=== PATIENT | male | born 1960 | race African-American/Black ===

== ENCOUNTER 2017-07-26 08:11 | Emergency (ER) | payer OTHER ==
[2017-07-26 08:16] VITALS: BMI 27.1
--- NOTE | 2017-07-26 08:37 | PDOC ---
History of Present Illness <Katiana Henning - Last Filed: 07/26/17 11:01> - General History Source: Patient Exam Limitations: No Limitations - History of Present Illness Initial Comments: 07/26/17 11:12 Patient is a 57 year old male with a significant past medical history of HTN, who presents to the ED with complaints of right handed tremor that began 1.5 months ago. Patient reports tremor began 1.5 months ago suddenly while at home. He reports right handed tremors have been intermittent for the last 1.5 months and only occurs when his hand is at rest. He states making an appointment with Dr. Leonard on August 06 for right handed tremor. Patient reports going to see Dr. Oviedo for evaluation of right handed tremor, who referred him to the ED for evaluation and stated he should not wait until August 06. He reports getting Thyroid, liver, kidney, and blood tests done yesterday, results all coming back normal. Denies injuries, trauma. Denies chest pain, SOB. Denies weakness blurred vision. Denies neck pain, headache. Denies leg pains, dysuria. Denies any other symptoms. Allergies Surgical history: Surgery done 19 years ago (calcaneal fracture) Social history: Lives at home. No smoking. No alcohol. No illicit drugs. PMD: Dr. Huerta. Dr. Kathrin Oviedo. 07/26/17 11:18 <Jong Amaya - Last Filed: 07/26/17 11:19> - General Chief Complaint: Tremors Stated Complaint: TREMOR/ RT HAND Time Seen by Provider: 07/26/17 08:36 Past History - Past Medical History Other medical history: DENIES - Suicide/Smoking/Psychosocial Hx Smoking History: Never smoked Hx Alcohol Use: Yes (SOCIAL) Drug/Substance Use Hx: No Substance Use Type: None <Katiana Henning - Last Filed: 07/26/17 11:01> <Jong Amaya - Last Filed: 07/26/17 11:19> - Past Medical History Allergies/Adverse Reactions: Allergies Allergy/AdvReac Type Severity Reaction Status Date / Time No Known Allergies Allergy Verified 07/26/17 08:16 Home Medications: Ambulatory Orders Amlodipine Besylate 5 mg PO DAILY 07/26/17 Losartan-Hctz 100-12.5 mg Tab 1 tab PO DAILY 07/26/17 Review of Systems - Review of Systems Able to Perform ROS?: Yes Comments:: 07/26/17 11:12 GENERAL/CONSTITUTIONAL: No fever or chills. No weakness. HEAD, EYES, EARS, NOSE AND THROAT: No change in vision. No ear pain or discharge. No sore throat. GASTROINTESTINAL: No nausea, vomiting, diarrhea or constipation. GENITOURINARY: No dysuria, frequency, or change in urination. CARDIOVASCULAR: No chest pain or shortness of breath. RESPIRATORY: No cough, wheezing, or hemoptysis. MUSCULOSKELETAL: +Right handed tremor. No joint or muscle swelling or pain. No neck or back pain. SKIN: No rash NEUROLOGIC: No headache, vertigo, loss of consciousness, or change in strength/ sensation. ENDOCRINE: No increased thirst. No abnormal weight change. HEMATOLOGIC/LYMPHATIC: No anemia, easy bleeding, or history of blood clots. ALLERGIC/IMMUNOLOGIC: No hives or skin allergy. All Other Systems: Reviewed and Negative <Jong Amaya - Last Filed: 07/26/17 11:19> *Physical Exam - Vital Signs Last Vital Signs Temp Pulse Resp BP Pulse Ox 98.3 F 88 20 151/94 100 07/26/17 08:13 07/26/17 08:13 07/26/17 08:13 07/26/17 08:13 07/26/17 08:13 <Katiana Henning - Last Filed: 07/26/17 11:01> - Vital Signs Last Vital Signs Temp Pulse Resp BP Pulse Ox 98.3 F 88 20 151/94 100 07/26/17 08:13 07/26/17 08:13 07/26/17 08:13 07/26/17 08:13 07/26/17 08:13 - Physical Exam Comments: 07/26/17 11:12 GENERAL: Awake, alert, and fully oriented, in no acute distress HEAD: No signs of trauma EYES: PERRLA, EOMI, sclera anicteric, conjunctiva clear ENT: Auricles normal inspection, hearing grossly normal, nares patent, oropharynx clear without exudates. Moist mucosa NECK: Normal ROM, supple, no lymphadenopathy, JVD, or masses LUNGS: Breath sounds equal, clear to auscultation bilaterally. No wheezes, and no crackles HEART: Regular rate and rhythm, normal S1 and S2, no murmurs, rubs or gallops ABDOMEN: Soft, nontender, normoactive bowel sounds. No guarding, no rebound. No masses EXTREMITIES: +Non intention tremor. +Resting tremor that resolves with activity. Normal range of motion, no edema. No clubbing or cyanosis. No cords, erythema, or tenderness NEUROLOGICAL: Cranial nerves II through XII grossly intact. Normal speech, normal gait SKIN: Warm, Dry, normal turgor, no rashes or lesions noted. <Jong Amaya - Last Filed: 07/26/17 11:19> Heart Score/ECG Review - ECG Intrepretation Comment:: 07/26/17 10:30 sinus at 74, L axis deviation, q waves inferior leads that are age indeterminate , lvh, no acute st/t wave findings <Katiana Henning - Last Filed: 07/26/17 11:01> ED Treatment Course - LABORATORY CBC & Chemistry Diagram: 07/26/17 10:10 07/26/17 09:57 <Katiana Henning - Last Filed: 07/26/17 11:01> - LABORATORY CBC & Chemistry Diagram: 07/26/17 10:10 07/26/17 09:57 <Jong Amaya - Last Filed: 07/26/17 11:19> Medical Decision Making - Critical Care Time Total Critical Care Time (minutes): 30 Critical Care Statement: The care of this patient involved high complexity decision making to prevent further life threatening deterioration of the patient 's condition and/or to evaluate & treat vital organ system(s) failure or risk of failure. - Medical Decision Making 07/26/17 09:25 a/p: 57yo male with R arm tremor intermittent x 1 month -sent by Dr. Oviedo for head ct -has appt to see dr. leonard on Aug 06 -other than RUE tremor no focal neuro findings -labs performed yesterday including thyroid and electrolytes/renal/liver function were normal per the patient -call placed to Dr. Oviedo 07/26/17 09:46 called by radiology, small L intracerebral hemorrhage will check labs -repeat call placed to Dr. Oviedo, call placed to [facility] Dr. Cook 07/26/17 10:[address] Oviedo who accepts the patient to service multiple calls placed to Dr. Cook, no answer -will try dr. fuller 07/26/17 10:41 multiple calls placed to [facility] without a response from Dr. Cook (disease and insect control boss doc ) pt will need transfer to [facility]. 07/26/17 11:[address] Alonzo from [facility] ([facility]) who accepts pt in transfer to the ED. Case discussed with Dr. Bhagat from the ED at [facility] who accepts pt in transfer. Pt signed the transfer paperwork and consent obtain and on the chart transportation will be here in [address] Oviedo updated on need for transfer and agrees with the paln. <Katiana Henning - Last Filed: 07/26/17 11:01> - Medical Decision Making 07/26/17 10:[address] Oviedo @9:23am. Called back @10:02am. Case discussed. Called Dr. Blaze Cook @9:50am. Dr. Cook father answered phone. Gave number [phone] to get into contact with Dr. Cook. Called Dr. Blaze Cook at [phone] @10:02am. Voice mail left, awaiting callback. Called Dr. Blaze cook at call book cellphone number @10:04am. Voicemail left , awaiting call back. Called Dr. Rodarte @10:06am. Awaiting call back Called Dr. Oviedo @10:46am. Awaiting call back. Called Dr. Oviedo @10:58am. Case discussed. <Jong Amaya - Last Filed: 07/26/17 11:19> *DC/Admit/Observation/Transfer - Discharge Dispostion Admit: No - Transfer to Acute Care Facility Receiving Facility: [facility] Accepting Physician:: Dr. Bhagat Transfer comment: 07/26/17 11:04 Pt will be seen and evaluated by Dr. Alonzo (neurosurgery) - Attestations Physician Attestion: 07/26/17 10:07 I, Dr. Katiana Henning, DO, attest that this document has been prepared under my direction and personally reviewed by me in its entirety. I further attest, that it accurately reflects all work, treatment, procedures and medical decision -making performed by ct. <Katiana Henning - Last Filed: 07/26/17 11:01> - Attestations Scribe Attestion: 07/26/17 10:24 Documentation prepared by Jong Amaya, acting as medical assembler for Katiana Henning DO, MD/. <Jong Amaya - Last Filed: 07/26/17 11:19> Diagnosis at time of Disposition: Intracerebral hemorrhage - Discharge Dispostion Disposition: TRANSFER ACUTE CARE/OTHER HOSP Condition at time of disposition: Guarded - Referrals Referrals: Jose Carlos Huerta MD [Primary Care Provider] -
[2017-07-26 10:37] LABS: BASOPHIL 0.9 % (0-2.0); MCH 31.3 pg (25.7-33.7); MCHC 34.5 g/dl (32.0-35.9); MEAN CELL VOLUME 90.8 fl (80-96); MEAN PLT VOLUME 7.7 fl (7.5-11.1); NEUTROPHILS 58.4 % (42.8-82.8); PLATELET COUNT 306 K/MM3 (134-434); RDW 12.4 % (11.9-15.9); WHITE BLOOD COUNT 5.6 K/mm3 (4.0-10.0)
[2017-07-26 10:38] VITALS: PULSE 90
[2017-07-26 10:50] LABS: ALBUMIN 3.6 g/dl (3.4-5.0); ANION GAP 4 (8-16); BILIRUBIN,TOTAL 0.7 mg/dL (0.2-1.0); CALCIUM 8.7 mg/dL (8.5-10.1); CO2 30 mmol/L (21-32); CREATININE 1.2 mg/dL (0.7-1.3); GLUCOSE,RANDOM 87 mg/dL (74-106); MAGNESIUM 2.3 mg/dL (1.8-2.4); SGOT/AST 15 U/L (15-37); SGPT/ALT 35 U/L (12-78); TOT PROT 7.6 g/dl (6.4-8.2)
[2017-07-26 10:51] LABS: ALK PHOS 77 U/L (45-117); INR 1.11 (0.82-1.09); PROTHROMBIN TIME (PATIENT) 12.5 SEC (9.98-11.88)
[2017-07-26 10:53] LABS: ACTIVATED PTT 36.3 SECONDS (26.9-34.4)
[2017-07-26 11:20] VITALS: BP 151/104; TEMP 98
--- NOTE | 2017-07-26 12:55 | EKG ---
Test Reason : Blood Pressure : / mmHG Vent. Rate : 074 BPM Atrial Rate : 074 BPM P-R Int : 180 ms QRS Dur : 090 ms QT Int : 364 ms P-R-T Axes : 053 -34 034 degrees QTc Int : 404 ms NORMAL SINUS RHYTHM LEFT AXIS DEVIATION ABNORMAL ECG NO PREVIOUS ECGS AVAILABLE CLINICAL CORRELATION IS RECOMMENDED Confirmed by DIALLO STREETER MD ([id number]) on 07/26/2017 12:55:01 PM Referred By: Confirmed By:DIALLO STREETER MD
== END 2017-07-26 11:25 | disposition short-term general hospital (02) ==
LOC: JER 08:11
DX: I61.1 Nontraumatic intracerebral hemorrhage in hemisphere, cortical (principal); I10 Essential (primary) hypertension
CPT/HCPCS: 36415; 70450-TC; 71010-TC; 80053; 83735; 85025; 85610; 85730; 86850; 86900; 86901; 93005; 93010; 99284-25